=== PATIENT | female | born 1990 | race Native Hawaiian/Other Pacific Islander ===

== ENCOUNTER 2018-01-22 13:02 | Emergency (ER) | payer OTHER ==
[2018-01-22 13:13] VITALS: RESP 15; O2SAT 100
[2018-01-22] MEDS ORDERED: Sodium Chloride 0.9% 1,000 ML IV ONE (13:34)
[2018-01-22] MEDS ORDERED: Sodium Chloride 0.9% 1,000 ML ONE (13:45)
[2018-01-22 13:55] LABS: BASO # 0.1 K/uL (0.0-0.2); BASO % 0.4 % (0.0-2.0); EOS # 0.1 K/uL (0.0-0.7); EOS % 0.6 % (0.0-4.0); HEMOGLOBIN 12.9 g/dL (11.0-16.0); LYMPH # 1.3 K/uL (1.0-4.3); LYMPH % 9.2 % (20.0-40.0); MEAN CELL VOLUME 79.2 fL (81.0-99.0); MEAN CORPUSCULAR HEMOGLOBIN 26.6 pg (27.0-31.0); MEAN CORPUSCULAR HGB CONC 33.5 g/dL (33.0-37.0); MEAN PLATELET VOLUME 8.6 fL (7.2-11.7); MONO # 0.8 K/uL (0.0-0.8); MONO % 5.7 % (0.0-10.0); NEUT # 11.6 K/uL (1.8-7.0); NEUT % 84.1 % (50.0-75.0); NRBC % 0.1 % (0.0-2.0); PLATELET COUNT 273 K/uL (130-400); RBC 4.85 Mil/uL (3.80-5.20); RED CELL DISTRIBUTION WIDTH 14.1 % (11.5-14.5); WHITE BLOOD COUNT 13.8 K/uL (4.8-10.8)
--- NOTE | 2018-01-22 13:55 | C.PDOC ---
History Of Present Illness 27 year old female presents to the ED for evaluation of nausea, vomiting, and dizziness status post syncopal episode yesterday. Reports she accidentally cut her finger yesterday and when she saw the blood she felt dizzy and then fainted. States she hit her head when she fell. Notes she lost consciousness for 1-2 minutes. Also notes she felt nauseous and vomited status post fainting. Reports she was able to sleep through the night but woke up with left sided headache, and nausea and vomiting when she turns her head, especially to the left side. States that when she stays still she feels fine but when she moves she gets a vertigo sensation. She was seen at [facility] and given Zofran 8mg PO and advised to come to the ED for further evaluation. Time Seen by Provider: 01/22/18 13:27 Chief Complaint (Nursing): Abdominal Pain History Per: Patient History/Exam Limitations: no limitations Onset/Duration Of Symptoms: Hrs Current Symptoms Are (Timing): Still Present Seizure Or Post-ictal Symptoms: Generalized Seizure Activity Fall Associated With With Symptoms: Yes Past Medical History Reviewed: Historical Data, Nursing Documentation, Vital Signs Vital Signs: Last Vital Signs Temp 97.6 F 01/22/18 13:07 Pulse 74 01/22/18 13:07 Resp 15 01/22/18 13:07 BP 103/72 01/22/18 13:07 Pulse Ox 100 01/22/18 13:07 - Medical History Other PMH: hypotension Surgical History: No Surg Hx Family History: States: No Known Family Hx - Social History Hx Alcohol Use: No Hx Substance Use: No - Immunization History Hx Tetanus Toxoid Vaccination: No Hx Influenza Vaccination: No Hx Pneumococcal Vaccination: No Review Of Systems Constitutional: Negative for: Fever, Chills, Weakness, Malaise Eyes: Negative for: Vision Change Gastrointestinal: Positive for: Nausea, Vomiting. Negative for: Abdominal Pain Musculoskeletal: Negative for: Neck Pain Skin: Negative for: Bruising Neurological: Positive for: Dizziness. Negative for: Weakness, Incoordination, Confusion, Seizures, Altered Mental Status Physical Exam - Physical Exam Appears: Non-toxic, No Acute Distress Skin: Warm, Dry, No Rash Head: Normacephalic, Other (parietal swelling and tenderness) Eye(s): bilateral: Normal Inspection, PERRL, EOMI, Other (no nystagmus) Ear(s): Bilateral: Normal Nose: Normal Oral Mucosa: Moist Neck: Supple Chest: Symmetrical Cardiovascular: Rhythm Regular Respiratory: Normal Breath Sounds, No Rales, No Rhonchi, No Wheezing Gastrointestinal/Abdominal: Soft, No Tenderness Extremity: Normal ROM Extremity: Bilateral: Atraumatic, Normal Color And Temperature, Normal ROM Neurological/Psych: Oriented x3, Normal Speech, Normal Motor, Normal Sensation, Normal Reflexes Gait: Steady ED Course And Treatment - Laboratory Results Result Diagrams: 01/22/18 13:43 01/22/18 13:43 Lab Interpretation: No Acute Changes O2 Sat by Pulse Oximetry: 100 (RA) Pulse Ox Interpretation: Normal - CT Scan/US CT head Other Rad Studies (CT/US): Read By Radiologist, Radiology Report Reviewed CT/US Interpretation: Accession No. : [id number]. Patient Name / ID : LAURIE KOTHARI / [id number]. Exam Date : 01/22/2018 13:53:00 ( Approved ). Study Comment : Sex / Age : F / 27Y. Creator : Oneida Lynn MD. Dictator : Oneida Lynn MD. Tool And Die Maker/Designer : Entry Level Mechanical Engineer : Oneida Lynn MD. Approver2 : Report Date : 01/22/2018 14:22:46. My Comment : . Date of service: 01/22/2018. PROCEDURE: CT HEAD WITHOUT CONTRAST. HISTORY: R/O Bleed. COMPARISON: None available. TECHNIQUE: Axial computed tomography images were obtained through the head/brain without intravenous contrast. Radiation dose: Total exam DLP = 1076.49 mGy-cm. This CT exam was performed using one or more of the following dose reduction techniques: Automated exposure control, adjustment of the mA and/or kV according to patient size, and/or use of iterative reconstruction technique. FINDINGS: HEMORRHAGE: No intracranial hemorrhage. BRAIN: No mass effect or edema. No atrophy or chronic micro vascular ischemic changes. VENTRICLES: Unremarkable. No hydrocephalus. CALVARIUM: Unremarkable. PARANASAL SINUSES: Unremarkable as visualized. No significant inflammatory changes. MASTOID AIR CELLS: Unremarkable as visualized. No inflammatory changes. OTHER FINDINGS: None. IMPRESSION: No evidence of acute intracranial hemorrhage intracranial collection mass effect or midline shift. Reevaluation Time: 15:19 Reassessment Condition: Improved (Sitting in ED eating a hero sandwich.) Medical Decision Making Medical Decision Making: Plan - CT head - Bloodwork - Antivert 50mg PO - IV fluids - HCG Disposition Counseled Patient/Family Regarding: Studies Performed, Diagnosis, Need For Followup, Rx Given - Disposition Referrals: [facility] [Outside] Disposition: HOME/ ROUTINE Disposition Time: 15:23 Condition: STABLE Additional Instructions: Take Tylenol if needed for pain. Encourage fluids and rest. Prescriptions: Meclizine [Antivert] 25 mg PO Q6 #30 tab Instructions: Concussion, Adult (DC), Vertigo (a Type of Dizziness) Forms: [facility] (Russian) - Clinical Impression Clinical Impression: Concussion, Vertigo - Scribe Statement The provider has reviewed the documentation as recorded by the Scribe Denisha Haddad All medical record entries made by the Scribe were at my direction and personally dictated by me. I have reviewed the chart and agree that the record accurately reflects my personal performance of the history, physical exam, medical decision making, and the department course for this patient. I have also personally directed, reviewed, and agree with the discharge instructions and disposition.
[2018-01-22 14:06] LABS: ALB/GLOB RATIO 1.6 (1.0-2.1); ALBUMIN 4.5 g/dL (3.5-5.0); ALT/SGPT 27 U/L (9-52); AST/SGOT 29 U/L (14-36); BLOOD UREA NITROGEN 11 mg/dL (7-17); CALCIUM 8.9 mg/dl (8.6-10.4); GFR NON-AFRICAN AMERICAN > 60
--- NOTE | 2018-01-22 14:26 | CT ---
Date of service: 01/22/2018 PROCEDURE: CT HEAD WITHOUT CONTRAST. HISTORY: R/O Bleed COMPARISON: None available. TECHNIQUE: Axial computed tomography images were obtained through the head/brain without intravenous contrast. Radiation dose: Total exam DLP = 1076.49 mGy-cm. This CT exam was performed using one or more of the following dose reduction techniques: Automated exposure control, adjustment of the mA and/or kV according to patient size, and/or use of iterative reconstruction technique. FINDINGS: HEMORRHAGE: No intracranial hemorrhage. BRAIN: No mass effect or edema. No atrophy or chronic microvascular ischemic changes. VENTRICLES: Unremarkable. No hydrocephalus. CALVARIUM: Unremarkable. PARANASAL SINUSES: Unremarkable as visualized. No significant inflammatory changes. MASTOID AIR CELLS: Unremarkable as visualized. No inflammatory changes. OTHER FINDINGS: None. IMPRESSION: No evidence of acute intracranial hemorrhage intracranial collection mass effect or midline shift.
[2018-01-22 14:40] LABS: BANDS 1 % (0-2); LYMPHOCYTE 12 % (20-40); MONOCYTE 7 % (0-10); NEUTROPHIL 80 % (50-75); PLATELET ESTIMATE NORMAL (NORMAL); TOTAL CELLS COUNTED 100
[2018-01-22 14:45] LABS: ANISOCYTOSIS SLIGHT; LARGE PLATELETS PRESENT
[2018-01-22 14:46] LABS: TOXIC GRANULATION PRESENT
[2018-01-22 15:36] VITALS: BP 98/65; PULSE 93; TEMP 98.4
== END 2018-01-22 15:35 | disposition home or self-care (01) ==
LOC: C.ER 13:02
DX: S06.0X1A Concussion with loss of consciousness of 30 minutes or less, initial encounter (principal); W18.39XA Other fall on same level, initial encounter; R42 Dizziness and giddiness
CPT/HCPCS: 70450; 80053; 84703; 85025; 96360; 99284; J7030